=== PATIENT | female | born 1955 | race Caucasian/White ===

== ENCOUNTER → 2016-02-18 | Outpatient (CLI) | payer OTHER ==
--- NOTE | 2016-02-18 10:40 | MA ---
Screening Digital Mammogram with Digital Breast Tomosynthesis Clinical Indications: Routine screening. Mother with history breast cancer at age 48. Technique: Standard cephalocaudal projections are obtained. Digital breast tomosynthesis was perform ed in the MLO projection with reconstruction at 1.0 mm slice thickness and composite MLO views recons tructed. This examination is processed by the CAD computer aided detection system. Comparison: December 08, 2014; November 25, 2014; and studies dating back to June 17, 2008. Breast density: B; There are scattered areas of fibroglandular density. Findings: CAD was reviewed. There are no new masses, new clusters of microcalcifications, or significant axillary lymphadenopathy . Impression: Negative mammogram. BI-RADS 1. Recommendation: Routine screening mammogram is recommended in one year. [facility] will send a result letter to the patient. Negative mammography should not preclude additional workup of a clinically suspicious finding. The patient's information is entered into a reminder system with a target due date for her next mammo gram.
== END ==
LOC: FIMAGING 08:30
DX: Z12.31 Encounter for screening mammogram for malignant neoplasm of breast (principal); Z80.3 Family history of malignant neoplasm of breast
CPT/HCPCS: G0202

== ENCOUNTER → 2017-07-27 | Outpatient (CLI) | payer OTHER | LOC: FIMAGING 08:21 | PROVIDERS: ATTEND Family Medicine | DX: Z12.31 Encounter for screening mammogram for malignant neoplasm of breast (principal); Z80.3 Family history of malignant neoplasm of breast ==

== ENCOUNTER 2018-05-22 15:07 | Emergency (ER) | payer OTHER ==
--- NOTE | 2018-05-22 15:50 | EDPHY ---
General Time Seen by Provider: 05/22/18 15:49 Narrative: CLINICAL IMPRESSION: Right forearm abrasion and skin tear ASSESSMENT/PLAN: Patient is a 63-year-old female with a history of lupus who presents to the emergency department after sustaining a mechanical trip and fall complaining of right forearm pain, right wrist pain and laceration. Physical examination reveals tenderness along the entire ulna with associated ecchymosis. There is a 7 in abrasion with small skin tear. There was no evidence of gaping wound, fracture, dislocation, compartment syndrome or neurovascular compromise. No indications for suture closure. The wound was irrigated and dressed with Steri- Strips. Her tetanus status was updated in the emergency department. This was a work comp injury, she will follow up with them as directed. I would also like her to follow up with her primary care for a wound check. Return precautions discussed. DIFFERENTIAL DX: Differential diagnosis including but not limited to contusion, fracture, compartment syndrome, laceration, abrasion, skin tear ED COURSE: 1604: Case discussed with Dr. Oconnell 1658: Dr. Oconnell also evaluated this patient. CHIEF COMPLAINT: Right forearm pain and laceration HPI: Patient is a 63-year-old female with a history of lupus who presents to the emergency department after sustaining a mechanical trip and fall complaining of right forearm pain and large wound. 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 The roof was flat, she stepped over 1 of the panels accidentally catching her foot causing her to fall. She did not fall off of the roof. She did not hit her head, there was no loss of consciousness. She believes she caught her arm on 1 of the panels. She denies any significant bleeding, she complains of pain along the whole outside of her arm and wrist. She is right-hand dominant, she is not up-to-date on her tetanus status. She denies any neck or back pain. She denies any other concerns or complaints. PAST MEDICAL HISTORY: Lupus Family History: Not contributory Social History: Occasional alcohol, denies smoking ROS: A full 10 point review of systems was negative except for those mentioned in HPI. PHYSICAL EXAM: General Appearance: Well-appearing, no acute distress. Neck: Supple, nontender, no midline pain, FROM. Respiratory: There are no retractions, lungs are clear to auscultation. Cardiac: Regular rate and rhythm, no murmurs or gallops. Skin: Warm, dry, no rashes, see below. Upper extremity examination. Right arm reveals ecchymosis along the ulnar aspect of the right forearm. There is a 7 in combination of abrasion and skin tear along the dorsal aspect of her forearm. Patient has no tenderness to her right shoulder, full range of motion. Elbow is nontender with full range of motion. The form compartment is soft. She has mild tenderness to palpation in her generalized carpals, no anatomical snuffbox tenderness. No metacarpal or other hand tenderness to palpation. 2+ radial pulse, 2 point discrimination is intact distally. Left upper extremity is unremarkable. MEDICAL DECISION MAKING: Patient was seen independently. Secondary supervising physician at time of evaluation was Dr. Oconnell, he did not evaluate this patient. Diagnosis: Right forearm pain, abrasion and skin tear. New, requires workup Summary: See Assessment and Plan. Clinical lab tests: Not applicable. Independent visualization of images, tracing, or specimens: Yes. Decision to obtain medical records or history from someone other than the patient: No Discussed patient with another provider: Yes, Dr. Oconnell Patient Progress: Stable, discharged. - Diagnostics Imaging Results: Imaging Impressions Forearm X-Ray 05/22/18 15:59 Impression: No fracture of the right forearm. - History Smoking Status: Never smoked - Objective Vital Signs: Initial Vital Signs Temperature (C) 36.8 C 05/22/18 15:14 Heart Rate 84 05/22/18 15:14 Respiratory Rate 17 05/22/18 15:14 Blood Pressure 141/96 H 05/22/18 15:14 O2 Sat (%) 96 05/22/18 15:14 O2 Delivery Mode Room Air Allergies/Adverse Reactions: nabumetone [From Relafen] Allergy (Verified 05/22/18 15:13) nitrofurantoin [From Macrodantin] Allergy (Verified 05/22/18 15:14) Penicillins Allergy (Verified 05/22/18 15:14) Sulfa (Sulfonamide Antibiotics) Allergy (Verified 05/22/18 15:14) Home Medications: Medication Instructions Recorded Hydroxychloroquine Sulfate 05/22/18 Medications Given: Discontinued Medications Diphtheria/Tetanus/Acell Pertussis (Boostrix) 0.5 ml IM .ONCE ONE Stop: 05/22/18 16:01 Last Admin: 05/22/18 16:24 Dose: 0.5 ml Tetracaine/Epinephrine/Lidocaine (Let Gel Topical) 1 ea TP EDNOW ONE Stop: 05/22/18 16:20 Last Admin: 05/22/18 16:23 Dose: 1 ea Departure - Departure Disposition: Home, Routine, Self-Care Clinical Impression: Forearm abrasion Qualifiers: Encounter type: initial encounter Laterality: right Qualified Code(s): S50.811A - Abrasion of right forearm, initial encounter Contusion, forearm Qualifiers: Encounter type: initial encounter Laterality: right Qualified Code(s): S50.11XA - Contusion of right forearm, initial encounter Condition: Good Instructions: Laceration (ED), Contusion in Adults (ED) Additional Instructions: DISCHARGE INSTRUCTIONS FROM YOUR PROVIDER Thank you for visiting our emergency department today. Please keep in mind that discharge from the emergency department does not mean that there is nothing wrong - it simply means that we have not identified an emergency condition that requires further evaluation or treatment in the hospital. Please follow-up with your workmen's comp. I would also recommend you follow up with your primary care provider for a wound check. Keep wound clean and dry for 24 hours. Then remove dressing, clean at least twice daily or when soiled with soap and water, apply antibiotic ointment and dressing. Do not soak the wound. For pain control: You may take Tylenol, I recommend 500-1000 mg every 6-8 hours as needed. Take with food and a full glass of water. Stop taking if this is upsetting you stomach. Do not exceed 4000 mg in a 24 hr period. You may also take ibuprofen, recommend 400 mg every 6 hr. Take with food and a full glass of water. Stop taking if this upsets your stomach. Do not exceed 2400 mg in a 24 hr period. Return for signs of wound infection ie: redness, swelling, drainage, foul odor, red streaks, fever, chills, pain, bleeding, if the wound opens or for any other new, worsening or worrisome symptoms. People present with illnesses and injuries in different ways, and it is always possible that we have missed something. Again, thank you for choosing our emergency department. We hope that you feel better. Referrals: Jenelle Anderson MD [Primary Care Provider] - 2-3 days, call for appt.
[2018-05-22] MEDS ORDERED: TDAP ADULT 0.5 ML INJ (BOOSTRIX) IM ONE (16:00)
[2018-05-22] MEDS ORDERED: LET GEL TOPICAL 1 EA SYR TP ONE ×2 (16:16→16:19)
[2018-05-22 17:27] VITALS: BP 126/77
== END 2018-05-22 17:27 | disposition home or self-care (01) ==
DX: S50.811A Abrasion of right forearm, initial encounter (principal); S50.11XA Contusion of right forearm, initial encounter; Z23 Encounter for immunization; W01.0XXA Fall on same level from slipping, tripping and stumbling without subsequent striking against object, initial encounter; Y92.89 Other specified places as the place of occurrence of the external cause; Y93.89 Activity, other specified